=== PATIENT | female | born 1945 | race Caucasian/White ===

== ENCOUNTER 2025-09-27 09:11 | Emergency (ER) | payer MEDICARE, BC, SELFPAY ==
--- OUTSIDE RECORDS SUMMARY | 2025-09-27 09:14 | XMS_ITS | Clinical Summary ---
Author Organization [facility] Address [address] [place] [address] Care Team Providers Care Secondary Connector Armature Name Role Phone Elsewhere, Pcp Primary Care Provider Unavailabl e Source Comments Patient records contain information from all sites at [facility]. For routine questions regarding patient records, call [phone] during business hours, M-F 8:00 AM - 5:00 PM Central Time. Record requests for emergency care only can be directed to [phone] at any time.[facility] Allergies Active AllergyReactionsCriticalityNoted DateCommentsBee Venom Protein (Honey Bee)CkplpkmepxkDlhq33/01/2018FentanylOther (see comments)04/16/2022 Swelling in combination with the Versed MidazolamEdema (Reselect Reaction),FzbfblviLgadma50/11/2006 Sedative Tranexamic AcidHives (Reselect Reaction)03/25/2023 Medications MedicationSigDispense QuantityRefillsLast FilledStart DateEnd DateStatus EPINEPHrine 0.3 mg/0.3 mL injection syringe Inject 0.3 mg intramuscularly.03/24/2012ctive nystatin-triamcinolone (MYCOLOG II) 100,000 Unit/g-0.1 % ointment Apply 1 application topically 2 (two) times a day. Apply to vulva. 15 g 05/18/2021ctive Additional Information Patient taking differently:1 application. topicalAs needed, Apply to vulva., Reported on 02/25/2023 ibuprofen (ADVIL,MOTRIN) 200 mg tablet Take 3 tablets (600 mg total) by mouth every 6 (six) hours as needed for pain for up to 5 days. 60 tablet 3Active omega 7-veu-rch-fish oil 1,000 mg (120 mg-180 mg) capsule Take 1,000 mg by mouth daily.Active glycine 500 mg capsule Take by mouth daily.Active UNABLE TO FIND Take 1 each by mouth daily. Med Name: BIO COMPLETE 3Active glucosamine-chondroitin 500-400 mg per tablet Take 1 tablet by mouth daily.Active ascorbic acid, vitamin C, (ascorbic acid) 500 mg tablet Take 500 mg by mouth daily.Active cholecalciferol (Vitamin D3) 125 mcg (5,000 Unit) capsule Take 125 mcg by mouth daily.Active naproxen sodium 220 mg tablet Take 220 mg by mouth daily.Active multivitamin tablet Take 1 tablet by mouth daily.Active zfhigrq-pjlowd-dmynhu-glycosam 300 mg calcium- 1,700 mg/scoop powder Take by mouth.Active clobetasoL (Temovate) 0.05 % ointment Apply topically 2 (two) times a week. Apply to vulva and vaginal opening twice weekly a small pea size amount. 30 g 5Active tacrolimus (Protopic) 0.03 % ointment Indications:Lichen SclerosusApply 1 Application topically 2 (two) times a day. Apply to affected area twice a day Friday, Friday, Friday, Friday, and Friday. Apply once a day on Friday and in the morning. In the p.m. apply clobetasol, on Friday and . 100 g 5Active Active Problems ProblemNoted DateDiagnosed DateObesity Body Mass Index 30-39.9 Adult03/05/2023 Bleeding Psfvdgvqoibete83/23/2023Thickened Endometrial Furahj3102/25/2023olyp Glgmns6902/25/2023Fatty Liver Overview (02/25/2023): By MRI of abdomen because of a nodular liver on CT colonography By MRI of abdomen because of a nodular liver on CT colonography Hyperlipidemia MixedsoriasisRhinitis Fetyfzld78 Family History Medical HistoryRelationNameCommentsAsthmaBrotherJohn CondonDementiaMother Angeles CondonBreast cancer (in one breast)Paternal GrandmotherMargaret Alexandru RelationNameStatusCommentsBrotherJohn CondonMotherConstance CondonPaternal GrandmotherMargaret Alexandru Social History Tobacco UseTypesPacks/DayYears UsedDateSmoking Tobacco: FormerCigarettes Smokeless Tobacco: Never Comments:It's been a very lo ng time, I don't remember dates Alcohol UseStandard Drinks/WeekCommentsYes0 (1 standard drink = 0.6 oz pure alcohol)moderate amountHumiliation, Afraid, Rape, and Kick questionnaireAnswer Date RecordedWithin the last year, have you been afraid of your partner or ex-partner?No02/27/2023Within the last year, have you been humiliated or emotionally abused in other ways by your partner or ex-partner?No02/27/2023 Within the last year, have you been kicked, hit, slapped, or otherwise physically hurt by your partner or ex-partner?No02/27/2023Within the last year, have you been raped or forced to have any kind of sexual activity by your part ner or ex-partner?No02/27/2023Hunger Vital SignAnswerDate RecordedWithin the past 12 months, you worried that your food would run out before you got the money to buymore.Never true05/26/2025Within the past 12 months, the food you bought just didn't last and you didn't have money to get more.Never true 05/26/2025PRAPARE - TransportationAnswerDate RecordedIn the past 12 months, has lack of transportation kept you from medical appointments or from getting medications?No05/26/2025In the past 12 months, has lack of transportation kept you from meetings, work, or from getting things needed for daily living?No 05/26/2025HC UtilitiesAnswerDate RecordedIn the past 12 months has the electric, gas, oil, or water company threatened to shut off services in your home?No05/26/2025Housing StabilityAnswerDate RecordedWhat is your living situation today?I have a steady place to live05/26/2025EducationAnswerDate RecordedWhat is the highest level of school you have completed or the highest degree you have received?Professional school degree (e.g., MD, DDS, DVM, HALINA) 05/15/2021CommentsNoSex and Gender InformationValueDate RecordedSex Assigned at XttzgPxoags63/09/2021 10:38 AM CSTLegal XydQpzqvs49/03/2017 7:55 AM CSTGender YfgsxhxzLkhpna73/10/2021 2:05 PM CDTSexual OrientationStraight 05/15/2021 2:05 PM CDT Last Filed Vital Signs Vital SignReadingTime TakenCommentsBlood Mkcebhom510/7708 10:21 AM CDT Qbsim490105/30/2025 10:21 AM UXCLyvekrrlran11.6 ??C (97.9 ??F)03/26/2023 9:01 AM CDTRespiratory Rsla635803/07/2023 10:40 AM CDTOxygen Xnvmijsirq76%03/26/2023 9:01 AM CDTInhaled Oxygen Concentration--Tfwxdu80.6 kg (173 lb 4.5 oz)05/30/2025 10:21 AM HJUBtmeby422.5 cm (5' 6.34)05/30/2025 10:21 AM CDTBody Mass Index27.68 05/30/2025 10:21 AM CDT Plan of Treatment Health MaintenanceDue DateLast DoneCommentsHepatitis C Vpbzaaikl17/29/1948Zoster Vaccines (1 of 2)12/03/1997RSV vaccine - (32-36 weeks) or 50+ years (1 - 1-dose 75+ series)3DTaP,Tdap,and Td Vaccines (2 - Td or Tdap) , 01/28/2006Depression Screening (Annual PHQ-2)10/06/2024 Fall Risk Screen (Annual)5COVID-19 Vaccine (1 - 2024- season) 2025Influenza Vaccine (#1)5Bone Density Scan (Osteoporosis Screen)Itefsuxwfhhg75/17/2017Pneumococcal vaccine (50+ years)Completed 04/06/2019, 03/15/20142215QreviklosrqDcnguvcmlqea35/12/2022Colorectal Cancer ScreeningDiscontinuedColorectal Cancer SurveillanceDiscontinuedMammogram Xleypvessopa04/18/2024, 01/29/2022, 11/09/2020, Additional history existsCT ColonographyDiscontinuedCT ColonographyDiscontinuedCologuardDiscontinuedFIT DiscontinuedIPV VaccinesAged OutNo longer eligible based on patient's age to complete this topic Medical Devices ImplantedTypeAreaManufacturerDevice IdentifierShelf Expiration DateModel / Serial / LotHardware E.G. Pins/Screws/RodsHardware e.g. pins/screws/rodsLeft: WristClp [facility] 235 - [id number] - [id number] Implanted:Qty: 2 on 04/16/2022 by Saran Heard M.D. at [facility] Hardware e.g. pins/screws/rodsN/A: [employer] [id number] 10/17/[id number] / [id number] / [id number] Procedures Procedure NamePriorityDate/TimeAssociated DiagnosisCommentsCOLONOSCOPYRoutine 04/16/2022 9:34 AM CDT Screening Colon Cancer Average Risk from Last 3 Months or Most Recently Relevant to Health Maintenance Results * Colonoscopy (04/16/2022 9:34 AM CDT)Anatomical RegionLateralityModality EndoscopySpecimen (Source)Anatomical Location / LateralityCollection Method / VolumeCollection TimeReceived Time04/16/2022 9:34 AM CDT Impressions 04/16/2022 11:53 AM CDT Post-op Diagnoses: ? - Preparation of the colon was fair. ? - The examined portion of the ileum was normal. ? - Diverticulosis in the entire examined colon. ? - One 16 mm polyp in the proximal ascending colon, removed piecemeal ? using a cold snare. Resected and retrieved. Clips (MR conditional) were ? placed. ? - Internal hemorrhoids. Narrative 04/16/2022 11:53 AM CDT G[facility] 9 GI GI Patient Name: Ana María Canada Date of : 1945 Age: 76 Gender: Female Procedure Date: 04/16/2022 Procedure: ? Colonoscopy Providers: ? Saran Heard MD Referring Provider: ?June Navarro Pre-op Diagnoses: ?High risk colon cancer surveillance: Personal ? history of colonic polyps Recommendation: ? - Return to referring physician as previously scheduled. ? - Await pathology results. ? - Follow up recommendations for patients with polyps identified during ? colonoscopy are impacted by several factors including polyp ? characteristics (size, number and histology), adequacy of colonic ? preparation and pertinent family history. For [facility] providers, ? detailed recommendations are available as an AskMayoExpert Care Process Model: <[email or web address] ? There may be some circumstances, specifically those patients with a ? personal or family history of significant colorectal neoplasms where ? these guidelines may not apply. Consider consultation in ? Gastroenterology for all other polyp findings or for patients who are ? not at average risk. Findings: ? The terminal ileum appeared normal. ? Many medium-mouthed diverticula were found in the entire colon. ? A 16 mm polyp was found in the proximal ascending colon. The polyp was ? sessile. The polyp was removed with a piecemeal technique using a cold ? snare. Resection and retrieval were complete. To prevent bleeding after ? the polypectomy, two hemostatic clips were successfully placed (MR ? conditional). There was no bleeding at the end of the maneuver. ? Internal hemorrhoids were found during retroflexion. The hemorrhoids ? were small. Procedural Details: ? The patient was seen, evaluated, history reviewed, airway and heart-lung ? exams were performed by licensed provider and were satisfactory for ? planned level of sedation care. ? The risks, benefits and alternatives for the procedure and sedation were ? discussed and informed consent was obtained. A procedural pause was ? conducted in the presence of assisting personnel to verify the correct ? patient identity and procedure to be performed. Throughout the ? procedure, the patient's blood pressure, pulse, and oxygen saturations ? were monitored continuously. The Pediatric Colonoscope was introduced ? under direct vision through the anus and advanced to 5 cm into the ? ileum. The colonoscopy was performed without difficulty. The patient ? tolerated the procedure well. The quality of the bowel preparation was ? evaluated using the BBPS ([place] Bowel Preparation Scale) with scores ? of: Right Colon = 2 (minor amount of residual staining, small fragments ? of stool and/or opaque liquid, but mucosa seen well), Transverse Colon = ? 2 (minor amount of residual staining, small fragments of stool and/or ? opaque liquid, but mucosa seen well) and Left Colon = 3 (entire mucosa ? seen well with no residual staining, small fragments of stool or opaque ? liquid). The total BBPS score equals 7. The quality of the bowel ? preparation was fair. Estimated Blood Loss: ?Estimated blood loss was minimal. Complications: ? No immediate complications. Estimated blood loss: ? Minimal. Sedation: ? Anesthesia was administered by an anesthesia professional. The following ? parameters were monitored: oxygen saturation, heart rate, blood ? pressure, respiratory rate, EKG, adequacy of pulmonary ventilation, and ? response to care. Attending Participation: I personally performed the entire procedure. Saran Heard MD 04/16/2022 11:52:46 AM This report has been signed electronically. Number of Addenda: 0 Authorizing ProviderResult TypeResult StatusGaLuana Martin APRNNIndiaPIndiaGI PROCEDURE ORDERABLESFinal Result from Last 3 Months or Most Recently Relevant to Health Maintenance Insurance Advance Directives For more information, please contact: [phone] TypeDate RecordedPatient RepresentativeExplanationAdvance Directives04/16/2022 2:39 PM* Will Canada * Angeles Hernandez HCPOA/ADVOCATE/AGENT/POURING CRANE OPERATOR/SURROGATE NameRelationshipHealthcare Agent RelationshipCommunicationWill CanadaSpouse Health Care Agent* * Angeles BlackburnughterFirst Alternate Health Care Agent* Care Teams Team MemberRelationshipSpecialtyStart DateEnd Date Elsewhere, Pcp PCP - GeneralInternal Medicine03/04/23
--- OUTSIDE RECORDS SUMMARY | 2025-09-27 09:14 | XMS_ITS | Clinical Summary ---
Author Organization [facility] Address [address] [place] [address] Care Team Providers Care Supervisor Boat Outfitting Name Role Phone Pcp, No Primary Care Provider Unavailabl e Allergies Active AllergyReactionsCriticalityNoted DateCommentsFentanylOther - Describe In Comment Field04/16/2022 Swelling in combination with the Versed Unlisted Allergen (Include Detail In Comments)Poyhmypmdyq20/13/2012 Bee sting Tranexamic WradXjgbi88/20/2023Venom-Honey NuqUzxinpwtlnfRbon70/01/2018Midazolam Edema01/28/2006 Medications MedicationSigDispense QuantityRefillsLast FilledStart DateEnd DateStatus EPINEPHrine (EPIPEN) 0.3 mg/0.3 mL injection Inject 0.3 mg intramuscular one time if needed for Allergic Reaction. 1 Each ctive tacrolimus 0.03% (PROTOPIC) 0.03 % ointment Apply topically to affected area(s) 2 times daily.ctive triamcinolone (ARISTOCORT) 0.1 % ointment Indications:Chronic eczematous otitis externa of both earsApply 1 Strip topically to affected area(s) 2 times daily. 45 g Active clobetasol 0.05% (TEMOVATE 0.05% OINTMENT) 0.05 % ointment Apply topically to affected area(s).06/21/2021ctive ascorbic acid, vitamin C, (VITAMIN C) 500 mg tablet Take 500 mg by mouth.Active cholecalciferol (VITAMIN D3) 5,000 unit capsule Take 125 mcg by mouth.Active glucosamine-chondroitin, 500-400mg, (COSAMIN DS) 500-400 mg tablet Take 1 Tablet by mouth once daily.Active Glycine 500 mg cap Take by mouth.Active naproxen (ALEVE) 220 mg tablet Take 220 mg by mouth.Active Active Problems ProblemNoted DateDiagnosed DateMyopia of both eyes with astigmatism and kizfeyddjl58/12/2019Nuclear senile cataract of both eyes05/17/2019Fatty liver disease, gzxgufceciah16/26/2015 Overview (07/31/2015): By MRI of abdomen because of a nodular liver on CT colonography Cdrwcsvav01/27/2010Mixed kpfnsohdvxspbx35/27/2010Vitamin D stfkekqckz77/27/2010 Colon polyp01/23/2009 Overview (03/11/2014): positive FOBT March 2014. Needs colonoscopy. Benign neoplasm of colon05/09/20060860TYNNOQ15/19/2005Seborrheic dermatitis, pgnjsdqoafd68/23/2004RHINITIS - GTKPWEYF87/06/2003CONJUNCTIVITIS- OU-ALLERGIC 12/08/2000 Resolved Problems ProblemNoted DateDiagnosed DateResolved DateFATIGUE AND EATVUZH0112/15/2002 05/09/2006BDOMINAL PAIN UNSPECIFIED SITE Immunizations ImmunizationAdministration DatesNext DuePneumococcal Poly,23-Valent (Pneumovax) 03/15/2014Pneumococcal conj 13-Valent (Prevnar 13)04/06/2019Td (Age >=7 Years) 01/28/2006Tdap03/15/2014 Family History Medical HistoryRelationNameCommentsOtherMotheralzheimer/macular degeneration Cancer-breastPaternal GrandmotherCancer-ovarianNo Family HistoryRelationName StatusCommentsFatherDeceasedfrom pneumoniaMotherPaternal Grandmother Social History Tobacco UseTypesPacks/DayYears UsedDateSmoking Tobacco: FormerCigarettes Smokeless Tobacco: Never Tobacco Cessation:Counseling Given: Yes Comments:2002 Alcohol UseStandard Drinks/WeekCommentsYes0 (1 standard drink = 0.6 oz pure alcohol)Alcoholic Drinks/day: 1PHQ-2AnswerDate RecordedPHQ-2 Blquj464 Social ConnectionsAnswerDate RecordedFrequency of Communication with Friends and FamilyNot on file10/06/2021Financial Resource StrainAnswerDate Recorded Difficulty of Paying Living ExpensesNot on file2Difficulty of Paying Living ExpensesNot on file10/06/2021CommentsNoSex and Gender Information ValueDate RecordedSex Assigned at BirthNot on fileLegal KfpUyzrcl02/14/2013 6:18 AM CSTGender IdentityNot on fileSexual OrientationNot on file Last Filed Vital Signs Vital SignReadingTime TakenCommentsBlood Kjoguwkz096/8407/13/2020 4:13 PM CDT Yfcan686407/13/2020 4:13 PM ZIYKzgedsqzrcn71.2 ??C (98.9 ??F)11/18/2017 2:06 PM CSTRespiratory Abut214210/21/2017 3:33 PM CSTOxygen Icdbjjqmot85%07/13/2020 4:13 PM CDTInhaled Oxygen Concentration--Hhtkmt63.1 kg (198 lb 11.2 oz)07/13/2020 4:13 PM NGMCyovin423.6 cm (5' 5.98)07/13/2020 4:13 PM CDTBody Mass Index32.09 07/13/2020 4:13 PM CDT Plan of Treatment Health MaintenanceDue DateLast DoneCommentsHepatitis C screening for age 18-79 12/03/1965Zoster (shingles) series for age 50+ (1 of 2)12/03/1997Medicare Wellness for age 65+12/03/2012Depression screening for age 12+04/06/2020 04/06/2019, 09/10/2016BMI (ht and wt on same day) for age 18+07/13/2021 07/13/2020, 04/06/2019, 10/28/2017, Additional history existsRSV vaccine for adults or (1 - 1-dose 75+ series)12/03/2022Tetanus vowvlpk6003/15/2024 03/15/2014, 01/28/2006COVID-19 vaccine series (2024-26 season)2025 Influenza Vaccine (#1)2025DEXA/DXA scan for age 65+Wxlrbbyrz10/17/2017, 03/22/2014Pneumococcal series for age 50+Pubzlucsh09/02/2019, 03/15/2014 Hepatitis B series for 19+Aged OutNo longer eligible based on patient's age to complete this topic Procedures Procedure NamePriorityDate/TimeAssociated DiagnosisCommentsXR DXA BONE DENSITY 2 SITES ODCGJOcaplif44/17/2017 2:30 PM TOBACCO GROWER Asymptomatic postmenopausal state from Last 3 Months or Most Recently Relevant to Health Maintenance Results * (ABNORMAL) XR DXA BONE DENSITY 2 SITES AXIAL (10/22/2016 2:30 PM TOBACCO GROWER) Anatomical RegionLateralityModalitySpine, HIPS, HIPL, HIPROtherSpecimen (Source)Anatomical Location / LateralityCollection Method / VolumeCollection TimeReceived Time Narrative 10/24/2016 9:32 AM TOBACCO GROWER Please see scanned document for results of this study. Authorizing ProviderResult TypeResult StatusLori Cinthia Alfonso MDDEXAFinal Result from Last 3 Months or Most Recently Relevant to Health Maintenance Insurance Advance Directives TypeDate RecordedPatient RepresentativeExplanationHealthcare Cyuldnkyz48/25/2011 Health Care Directive Care Teams Team MemberRelationshipSpecialtyStart DateEnd Date Pcp, No PCP - Jomfrse09/21/24
[2025-09-27 10:02] VITALS: BP 106/66; PULSE 96; RESP 18; TEMP 37.3; O2SAT 93; BMI 28.2
[2025-09-27 10:59] LABS: PCR FLU A POSITIVE PCR FLU A (Negative); PCR FLU B Negative PCR FLU B (Negative); PCR RSV Negative PCR RSV (Negative); SARS PCR* Negative SARS-CoV-2 (Negative)
--- NOTE | 2025-09-27 11:40 | ED.FEVER ---
HPI - Fever General Date Seen: 09/27/25 Chief Complaint: Fever Stated Complaint: Fever, Congested Time Seen by Provider: 09/27/25 10:02 Source: patient, family, RN notes reviewed and old records reviewed Mode of arrival: ambulatory Limitations: no limitations History of Present Illness HPI Narrative: This very pleasant 79-year-old female with little baseline history of cardiorespiratory illness, presents here with a fever up and down for the past 2 days. She notes that she has nasal discharge, along with this her fever has been up to 101 taking axillary. She has felt weak, during this time. And her body aches, she has taken some ibuprofen with this. She consulted online senior medical technologist, who prescribed amoxicillin for her. She started taking that yesterday. She did not receive any immunizations since she has been a youth. She has no history of any chest pain, she denies any significant short of breath, she has a sore throat. But she has been able to swallow with fluids any eat. She denies any significant ear pain, any abdominal discomfort any nausea vomiting diarrhea or dysuria. She is on no significant chronic medication. Lives with her who is here with her Related Data Home Medications ?Medication ?Instructions ?Recorded ?Confirmed clobetasol 0.05 % topical ointment topical 2XW 09/27/25 tacrolimus 0.03 % topical ointment topical 09/27/25 Previous Rx's ?Medication ?Instructions ?Recorded oseltamivir 75 mg capsule (Tamiflu) 75 mg PO BID 5 days #10 caps 09/27/25 Allergies Allergy/AdvReac Type Severity Reaction Status Date / Time bee pollen Allergy Severe Anaphylaxis Verified 09/27/25 10:10 fentanyl Allergy Severe Swelling Verified 09/27/25 10:10 of Lip/Tongue/Throat midazolam (From Versed) Allergy Severe Swelling Verified 09/27/25 10:10 of Lip/Tongue/Throat Review of Systems Status of ROS Reports: 10 or more systems reviewed and unremarkable except as noted in History and below PFSH [facility] Social History Smoking Status: Never smoker How often do you have a drink containing alcohol: monthly or less AUDIT-C Alcohol total score: 1 Non-prescribed substance use: denies use service: No Exam Narrative Exam Narrative: On examination in room 6 she is in no apparent distress, her vital signs are reasonable, pupils equal round reactive to light there is no scleral icterus redness or TMs are normal, her oropharynx is slightly reddened with no tonsillar enlargement or exudate, her neck is supple full range of motion with absence of meningismus there is no lymphadenopathy anterior posterior chains. She is wearing a mask although it is not right, keeping her nose out. Chest is good air entry bilateral with no wheezing crackles noted, her heart sounds are normal, there is no wheezing crackles noted, no respiratory distress her abdomen is soft, scars from upper abdominal surgery are well healed, there is no evidence of any significant tenderness on palpation masses, bowel sounds are normal. Skin reveals no petechiae rashes she moves all extremities independently and well. Const Vital Signs, click to edit/add: Vital Signs - 24 hr 09/27/25 10:02 Temperature 99.2 F Pulse Rate [Pulse Oximeter] 96 Respiratory Rate 18 Blood Pressure [Right Upper Arm] 106/66 Pulse Oximetry 93 Oxygen Delivery Method Room Air Documenting provider has reviewed patient's vital signs: yes Course Course ED Course: I discussed with her that symptomatic management with the Tylenol rest hydration is the norm with this problem, she would qualify for use of Tamiflu although I am not sure they will be able to find that in the pharmacy but I think it is reasonable to try, as this will decrease complication rate along with decreasing the length the illness, she was in within the realms of treatment at the present time. Use of her amoxicillin I am not sure is indicated given what I see, as this fits the parameter of a nonbacterial infection. We discussed this. We discussed also the complications associated with the diagnosis of influenza, and secondary infections and when to be seen again for this discharge her at this point. Vital Signs Vital signs: Initial Vital Signs Temperature 99.2 F 09/27/25 10:02 Temperature Source Temporal Artery Scan 09/27/25 10:02 Pulse Rate 96 09/27/25 10:02 Respiratory Rate 18 09/27/25 10:02 Blood Pressure 106/66 09/27/25 10:02 Blood Pressure Mean 79 09/27/25 10:02 Blood Pressure Position Sitting 09/27/25 10:02 Pulse Oximetry 93 09/27/25 10:02 Oxygen Delivery Method Room Air 09/27/25 10:02 Vital Signs Temperature 99.2 F 09/27/25 10:02 Pulse Rate 96 09/27/25 10:02 Respiratory Rate 18 09/27/25 10:02 Blood Pressure 106/66 09/27/25 10:02 Pulse Oximetry 93 09/27/25 10:02 Oxygen Delivery Method Room Air 09/27/25 10:02 Temperature 99.2 F 09/27/25 10:02 Pulse Rate 96 09/27/25 10:02 Respiratory Rate 18 09/27/25 10:02 Blood Pressure 106/66 09/27/25 10:02 Pulse Oximetry 93 09/27/25 10:02 Oxygen Delivery Method Room Air 09/27/25 10:02 MDM - Fever MDM Narrative Medical decision making narrative: Life-threatening differential diagnosis is include meningitis, encephalitis, pneumonia, intra-abdominal infection, bacteremia, other differential diagnosis include but are not limited to viral upper respiratory tract infection, strep, urinary tract infection, skin infection, osteomyelitis, influenza, fungal infections, diskitis, epidural abscess, or fever of unknown origin. Medical Records Attestation: I reviewed the patient's medical records. Lab Data Attestation: I reviewed the patient's lab results. Labs: Lab Results 09/27/25 Range/Units 10:10 SARS-CoV-2 (PCR) Negative SARS-CoV-2 (Negative) Influenza Type A (PCR) POSITIVE PCR FLU A A (Negative) Influenza Type B (PCR) Negative PCR FLU B (Negative) RSV (PCR) Negative PCR RSV (Negative) Discharge Plan Discharge Clinical Impression: Influenza A, Fever Patient Disposition: Home w/ Parent or Adult Condition: Stable Instructions: Fever in Adults (ED), Influenza (ED), Upper Respiratory Infection (DC), Droplet Precautions (ED) Additional Instructions: Home, rest, I recommend acetaminophen 1 gm by mouth 3 times a day, prescription given for Tamiflu, primary side effects of this are dizziness, and some mild nausea. He should try to get this if able within the next 24 hours. Watch for secondary infection such as pneumonia, (bacterial) as this is typically comes on when your immune systems being down from the influenza. Increasing chest pain shortness of breath, inability to keep things down should be brought back here for reassessment. Whether not you continue her amoxicillin, that is up to you, that will do nothing for the influenza. Activity Level: Light activity Discharge Diet: Regular Prescriptions: New oseltamivir [Tamiflu] 75 mg capsule 75 mg PO BID 5 Days Qty: 10 0RF No Action tacrolimus 0.03 % ointment topical clobetasol 0.05 % ointment topical 2XW Follow Up/Referrals: Provider,Not a Local [Primary Care Provider, Family Practice] Stand Alone Forms: [employer] Info Instructions
== END 2025-09-27 11:53 | disposition home or self-care (01) ==
PROVIDERS: Emergency Provider Family Medicine
DX: J10.1 Influenza due to other identified influenza virus with other respiratory manifestations (principal)
CPT/HCPCS: 87631; 99283; 99284